=== PATIENT | male | born 1990 | race Two or more races ===

== ENCOUNTER 2023-07-08 09:12 | Emergency (ER) | payer MEDICAID ==
[~2023-07-08] VITALS: Ht 175.3 cm; Wt 97.0 kg
[2023-07-08 09:41] VITALS: BP 165/84; TEMP 98.2
[2023-07-08 10:01] VITALS: PULSE 56; RESP 18; O2SAT 98
[2023-07-08] MEDS ORDERED: IBUP-1455 PO (11:24)
[2023-07-08] MEDS ORDERED: DexAMETHasone SOD PHOS 10MG/1ML VIAL INJ IM ONE (11:30)
[2023-07-08] MEDS ORDERED: KETOROLAC TROMETH 60MG/2ML VIAL IM ONE (11:30)
== END 2023-07-08 11:29 | disposition home or self-care (01) ==
LOC: ER 09:12 → EDBD 09:12 → ER 11:29
DX: S83.8X2A Sprain of other specified parts of left knee, initial encounter (principal); M89.9 Disorder of bone, unspecified; Z79.1 Long term (current) use of non-steroidal anti-inflammatories (NSAID); W01.0XXA Fall on same level from slipping, tripping and stumbling without subsequent striking against object, initial encounter; Y93.89 Activity, other specified; Y92.098 Other place in other non-institutional residence as the place of occurrence of the external cause; Y99.8 Other external cause status
CPT/HCPCS: 29505; 73562; 93971